=== PATIENT | male | born 1985 | race Caucasian/White ===

== ENCOUNTER 2017-11-05 22:26 | Observation (INO) ==
[2017-11-05 23:48] LABS: Baso # (Auto) 0.1 th/mm3 (0.0-0.2); Baso % (Auto) 0.5 % (0.0-2.0); Eos # (Auto) 0.2 th/mm3 (0.0-0.4); Eos % (Auto) 1.5 % (0.0-4.0); Hematocrit 41.7 % (39.0-51.0); Hemoglobin 14.7 gm/dL (13.0-17.0); Lymph # (Auto) 1.1 th/mm3 (1.0-4.8); Lymph % (Auto) 9.9 % (9.0-44.0); Mean Corpuscular HGB Conc 35.3 % (32.0-36.0); Mean Corpuscular Hemoglobin 30.8 pg (27.0-34.0); Mean Corpuscular Volume 87.4 fL (80.0-100.0); Mean Platelet Volume 8.2 fL (7.0-11.0); Mono # (Auto) 0.7 th/mm3 (0.0-0.9); Mono % (Auto) 6.5 % (0.0-8.0); Neut # (Auto) 8.8 th/mm3 (1.8-7.7); Neut % (Auto) 81.6 % (16.0-70.0); Platelet Count 253 th/mm3 (150-450); Red Blood Count 4.77 mil/mm3 (4.50-5.90); Red Cell Distribution Width 13.1 % (11.6-17.2); White Blood Count 10.8 th/mm3 (4.0-11.0)
[2017-11-05 23:56] LABS: Alanine Aminotransferase 44 U/L (12-78); Albumin 4.1 g/dL (3.4-5.0); Anion Gap 10 meq/L (5-15); Aspartate Aminotransferase 20 U/L (15-37); Blood Urea Nitrogen 9 mg/dL (7-18); Calcium 8.8 mg/dL (8.5-10.1); Carbon Dioxide 23.3 meq/L (21.0-32.0); Chloride 109 meq/L (98-107); Glomerular Filtration Rate Greater Than 89 mL/min (>89); Glucose,Random 113 mg/dL (74-106); Potassium 3.8 meq/L (3.5-5.1); Sodium 142 meq/L (136-145)
[2017-11-06] LABS: Alkaline Phosphatase 52 U/L (45-117); Total Protein 7.8 g/dL (6.4-8.2)
[2017-11-06 00:04] LABS: Creatine Kinase 84 U/L (39-308)
--- NOTE | 2017-11-06 01:07 | XR ---
EXAM DATE: 11/06/2017 12:14 AM EDT AGE/SEX: 32 years / Male INDICATIONS: Chest pain. Shortness of breath. CLINICAL DATA: This is the patient's initial encounter. Patient reports that signs and symptoms have been present for 2 days and indicates a pain score of 9/10. MEDICAL/SURGICAL HISTORY: Hypertension. Heart murmur. None. COMPARISON: No prior exams available for comparison. FINDINGS: Single AP view of the chest. The lungs are clear. Cardiomediastinal silhouette within nor mal limits. No evidence of pleural effusion or pneumothorax. CONCLUSION: No acute cardiopulmonary disease identified. Electronically signed by: Kaden Colby MD 11/06/2017 1:06 AM EDT
--- NOTE | 2017-11-06 01:22 | ED ---
HPI General Chief Complaint: Chest Pain Stated Complaint: Evac/Sob/Chest Pain Time Seen by Provider: 11/05/17 23:16 History of Present Illness HPI narrative: Patient is a 32-year-old male presents the emergency department with chief complaint of chest pain. He is 32 years old but very concerned with his heart because he states that "everyone in his family has before they are 40 from heart disease." Patient also reports shortness of breath. States his symptoms began while he was at work. He has had chest pain and shortness of breath before in the past however this is the worst it has ever been. Painactually began yesterday and are still present at the time of the H&P. Complete Quality Measures for STEMI Alert Patients Related Data Home Medications Medication Instructions Recorded Confirmed aspirin [Aspir-81] 11/05/17 Allergies Allergy/AdvReac Type Severity Reaction Status Date / Time No Known Allergies Allergy Unverified 11/05/17 23:01 Review of Systems Except as stated in HPI: all other systems reviewed are negative [facility] Medical History Medical History Asthma (Acute) Chest pain (Acute) Social History Social History Second Hand Smoke Exposure: No Smoking Status: Never smoker How Often Do You Have a Drink Containing Alcohol: Monthly or less Recent Travel in [facility] within the Last 8 Weeks: No Recent Out of Country Travel within the Last 8 Weeks: No Immunization History Tetanus Immunization: Unsure Exam Narrative Exam Narrative: GENERAL: 32-year-old male in mild distress secondary to chest pain and shortness of breath SKIN: Focused skin assessment warm/dry. HEAD: Atraumatic. Normocephalic. EYES: Pupils equal and round. No scleral icterus. No injection or drainage. ENT: No nasal bleeding or discharge. Mucous membranes pink and moist. NECK: Trachea midline. No JVD. CARDIOVASCULAR: Regular rate and rhythm. No murmur appreciated. RESPIRATORY: No accessory muscle use. Clear to auscultation. Breath sounds equal bilaterally. GASTROINTESTINAL: Abdomen soft, non-tender, nondistended. Hepatic and splenic margins not palpable. MUSCULOSKELETAL: No obvious deformities. No clubbing. No cyanosis. No edema. NEUROLOGICAL: Awake and alert. No obvious cranial nerve deficits. Motor grossly within normal limits. Normal speech. PSYCHIATRIC: Anxious. Course Initial Documented Vital Signs Temperature 98.6 F 11/05/17 22:41 Pulse Rate 106 H 11/05/17 22:41 Respiratory Rate 18 11/05/17 22:41 Blood Pressure 129/86 11/05/17 22:41 Pulse Oximetry 94 L 11/05/17 22:41 Last Documented Vital Signs Temperature 98.6 F 11/05/17 22:41 Pulse Rate 106 H 11/05/17 22:41 Respiratory Rate 18 11/05/17 22:41 Blood Pressure 129/86 11/05/17 22:41 Pulse Oximetry 94 L 11/05/17 22:41 Medical Decision Making MDM Narrative Medical decision making narrative: Patient was seen and evaluated in the emergency department. Chest x-ray was negative his initial troponin was negative. EKG did not demonstrate any signs of acute injury. He was admitted to the chest pain center for further evaluation and treatment. Lab Data Result diagrams: 11/05/17 23:20 11/05/17 23:20 Lab Results 11/05/17 11/05/17 Range/Units 23:20 23:20 WBC 10.8 (4.0-11.0) th/mm3 RBC 4.77 (4.50-5.90) mil/mm3 Hgb 14.7 (13.0-17.0) gm/dL Hct 41.7 (39.0-51.0) % MCV 87.4 (80.0-100.0) fL MCH 30.8 (27.0-34.0) pg MCHC 35.3 (32.0-36.0) % RDW 13.1 (11.6-17.2) % Plt Count 253 (150-450) th/mm3 MPV 8.2 (7.0-11.0) fL Neut % (Auto) 81.6 H (16.0-70.0) % Lymph % (Auto) 9.9 (9.0-44.0) % [place] % (Auto) 6.5 (0.0-8.0) % Eos % (Auto) 1.5 (0.0-4.0) % Baso % (Auto) 0.5 (0.0-2.0) % Neut # (Auto) 8.8 H (1.8-7.7) th/mm3 Lymph # (Auto) 1.1 (1.0-4.8) th/mm3 [place] # (Auto) 0.7 (0.0-0.9) th/mm3 Eos # (Auto) 0.2 (0.0-0.4) th/mm3 Baso # (Auto) 0.1 (0.0-0.2) th/mm3 WBC Differential . Differential Comment Auto diff final Sodium 142 (136-145) meq/L Potassium 3.8 (3.5-5.1) meq/L Chloride 109 H (98-107) meq/L Carbon Dioxide 23.3 (21.0-32.0) meq/L Anion Gap 10 (5-15) meq/L BUN 9 (7-18) mg/dL Creatinine 0.93 (0.60-1.30) mg/dL Estimated GFR Greater than 89 (>89) mL/min Random Glucose 113 H (74-106) mg/dL Calcium 8.8 (8.5-10.1) mg/dL Total Bilirubin 0.7 (0.2-1.0) mg/dL AST 20 (15-37) U/L ALT 44 (12-78) U/L Alkaline Phosphatase 52 (45-117) U/L Total Creatine Kinase 84 (39-308) U/L Troponin I Less than 0.02 L (0.02-0.05) ng/mL Total Protein 7.8 (6.4-8.2) g/dL Albumin 4.1 (3.4-5.0) g/dL Imaging Data Radiologist's impression: ITS Impressions Chest X-Ray 11/05/17 23:22 CONCLUSION: No acute cardiopulmonary disease identified. Discharge Plan Discharge Disposition Patient Disposition: 30 Still Patient Discharge Condition Condition: Stable Physicians Team ED Provider: Katelin Taylor Primary Care Provider: Noemí Mckeon Rxs /Orders / Referrals /Forms Prescriptions: No Action aspirin [Aspir-81] 81 mg Tablet,Delayed Release (Dr/Ec) RF: 0 Discharge Instructions Patient Printed Instructions: Chest Pain (ED) Status ED Status: With Doctor
--- NOTE | 2017-11-06 14:52 | ECG ---
Date Performed: 11/05/2017 Time Performed: 22:39:21 PTAGE: 32 years EKG: Sinus rhythm WITH SINUS ARRHYTHMIA POSSIBLE LEFT ATRIAL ENLARGEMENT BORDERLINE LEFT AXIS DEVIATION POSSIBLE LEFT VENTRICULAR HYPERTROPHY ABNORMAL ECG NO PREVIOUS TRACING DOCTOR: Pavel Crowley Interpretating Date/Time 11/06/2017 14:51:35
== END 2017-11-06 03:35 | disposition left against medical advice (07) ==
LOC: NEPC 22:26 → NEDA 22:26
PROVIDERS: ADMIT Internal Medicine Interventional Cardiology; ATTEND Internal Medicine Interventional Cardiology
DX: R06.02 Shortness of breath; R07.89 Other chest pain; J45.909 Unspecified asthma, uncomplicated